=== PATIENT | male | born 1980 | race Caucasian/White ===

== ENCOUNTER 2020-11-10 08:05 | Outpatient (CLI) | payer BC, SELFPAY | END 2020-11-10 08:06 | disposition home or self-care (01) | LOC: ANHCOVIDVC 08:06 | DX: Z23 Encounter for immunization (principal) | CPT/HCPCS: 0001A; 91300 ==

== ENCOUNTER 2020-12-01 08:03 | Outpatient (CLI) | payer BC, SELFPAY | END 2020-12-01 08:04 | LOC: ANHCOVIDVC 08:04 | DX: Z23 Encounter for immunization (principal) | CPT/HCPCS: 0002A; 91300 ==

== ENCOUNTER 2020-12-19 08:04 | Emergency (ER) | payer BC, SELFPAY ==
[2020-12-19 08:12] VITALS: BP 114/95; PULSE 89; RESP 12; TEMP 36.5; O2SAT 99
--- NOTE | 2020-12-19 08:41 | ED.URI ---
HPI - URI/Sore Throat General Chief Complaint: Upper Respiratory Infection Stated Complaint: SORE THROAT Time Seen by Provider: 12/19/20 08:22 Source: patient and RN notes reviewed Mode of arrival: ambulatory Limitations: no limitations History of Present Illness HPI Narrative: Patient presents today complaining of 5-day history of a sore throat and some mild postnasal drainage that has been worsening since onset. States the pain is not constant. Denies any additional symptoms to include cough, fever, congestion, rhinorrhea, ear pain. Denies history of seasonal allergies. Pain increases with swallowing or eating. Currently rates pain 6/10 and has been taking Tylenol, ibuprofen, Sudafed, and Benadryl with mild relief. Patient has been vaccinated against COVID-19. MD elicited complaint: sore throat Related Data Home Medications Medication Instructions Recorded Confirmed multivitamin [Daily Multivitamin] tablet 12/19/20 Allergies Allergy/AdvReac Type Severity Reaction Status Date / Time No Known Allergies Allergy Verified 12/19/20 08:11 Review of Systems Review of Systems: Narrative: CONSTITUTIONAL: Denies body aches, fever, chills, or sweats. EYES: Denies visual changes, redness, or discharge. ENT: Denies rhinorrhea, congestion, or otalgia.+ Sore throat, postnasal drainage CARDIOVASCULAR: Denies chest pain, palpitations, or edema. RESPIRATORY: Denies cough or dyspnea. GASTROINTESTINAL: Denies abdominal pain, nausea, vomiting, or diarrhea. GENITOURINARY: Denies dysuria or hematuria. SKIN: Denies rash, itching, or wounds. MUSCULOSKELETAL: Denies back pain, joint pain, or myalgia. NEUROLOGIC: Denies headache, numbness, tingling, or weakness. PSYCH: Denies depression or anxiety. [facility] Past Medical History Medical History (Updated 12/19/20 @ 08:45 by Kat Alcala, [facility], ) Vocal cord cyst Family History Family History (Updated 07/17/18 @ 15:29 by DOCTOR UNKNOWN) Mother Family history of thyroid disease Grandparent Diabetes mellitus Family history of arthritis Family history of lung cancer Family history of emphysema Family history of malignant neoplasm of esophagus Family history of congestive heart failure Social History Social History Smoking status: Never smoker Alcohol intake: current Comments At time of signature, I have reviewed and agree with nursing past medical, surgical, social and family history unless otherwise noted. Please see nursing chart for further information. There is no relevant family history pertinent to the presenting complaint Exam Narrative: Exam Narrative: GENERAL: Well-appearing, well-nourished, and in no acute distress. HEAD: Normocephalic, atraumatic. EYES: EOMI. No redness or drainage. Conjunctivae normal. ENT: Mucous membranes pink and moist. Nares clear. No rhinorrhea. TMs normal bilaterally. Throat mildly erythematous without edema or exudate. Uvula midline. NECK: Normal AROM. Supple. Bilateral anterior cervical chain lymphadenopathy and tenderness. CHEST: No respiratory distress. Clear to auscultation. HEART: Regular rate and rhythm. No murmur appreciated. Normal peripheral pulses. EXTREMITIES: Normal range of motion. No edema. SKIN: Warm, dry, no rash. Capillary refill normal. Normal skin turgor. NEURO: No focal deficits. Alert and oriented x3. Gait steady. PSYCH: Normal affect. No signs of depression or anxiety. Course Vital Signs Vital signs: Vital Signs Temperature 97.7 F 12/19/20 08:12 Pulse Rate 89 12/19/20 08:12 Respiratory Rate 12 12/19/20 08:12 Blood Pressure 114/95 H 12/19/20 08:12 Pulse Oximetry 99 12/19/20 08:12 Temperature 97.7 F 12/19/20 08:12 Pulse Rate 89 12/19/20 08:12 Respiratory Rate 12 12/19/20 08:12 Blood Pressure 114/95 H 12/19/20 08:12 Pulse Oximetry 99 12/19/20 08:12 Reviewed. Pt has been instructed to follow up with his PCP regarding his elevated blood pressure t
== END 2020-12-19 08:50 | disposition home or self-care (01) ==
PROVIDERS: Emergency Provider Nurse Practitioner
DX: J02.8 Acute pharyngitis due to other specified organisms (principal)
CPT/HCPCS: 87081; 87880; 99213; G0463